=== PATIENT | male | born 1975 | race Caucasian/White ===

== ENCOUNTER 2017-03-03 12:17 | Emergency (ER) | payer OTHER, BC ==
[~2017-03-03] VITALS: Ht 170.2 cm; Wt 120.0 kg
[2017-03-03 12:20] VITALS: BP 127/81
== END 2017-03-03 14:01 | disposition home or self-care (01) | DRG 605 ==
LOC: ED 12:17
PROC: 0HQKXZZ Repair Right Lower Leg Skin, External Approach (ICD-10-PCS; principal; 2017-03-03)
DX: S81.811A Laceration without foreign body, right lower leg, initial encounter (principal); W45.8XXA Other foreign body or object entering through skin, initial encounter

== ENCOUNTER 2017-03-04 11:06 | Emergency (ER) | payer OTHER, BC ==
[~2017-03-04] VITALS: Ht 170.2 cm; Wt 118.2 kg
[2017-03-04 11:50] VITALS: BP 121/68
== END 2017-03-04 11:50 | disposition home or self-care (01) | DRG 950 ==
LOC: ED 11:06
DX: S81.811D Laceration without foreign body, right lower leg, subsequent encounter (principal)

== ENCOUNTER 2017-03-10 11:41 | Emergency (ER) | payer OTHER, BC ==
[~2017-03-10] VITALS: Ht 170.2 cm; Wt 118.0 kg
[2017-03-10 12:03] VITALS: BP 145/70
== END 2017-03-10 12:10 | disposition home or self-care (01) | DRG 950 ==
LOC: ED 11:41
DX: S81.811D Laceration without foreign body, right lower leg, subsequent encounter (principal); X58.XXXD Exposure to other specified factors, subsequent encounter